=== PATIENT | female | born 2000 | race Two or more races ===

== ENCOUNTER 2018-05-31 20:59 | Emergency (ER) | payer SELFPAY ==
[~2018-05-31] VITALS: Ht 162.6 cm; Wt 54.0 kg
[2018-05-31] MEDS ORDERED: SODIUM CHLORIDE 0.9% 1,000 ML IV ONE ×2 (21:37→23:19)
[2018-05-31 22:51] LABS: BASOPHILS % 0.3 % (0.0-2.0); EOSINOPHILS % 0.1 % (0.0-5.0); HEMATOCRIT. 32.4 % (36.0-48.0); HEMOGLOBIN. 10.6 g/dL (12.0-16.0); LYMPHOCYTES % 8.3 % (20.0-50.0); MEAN CORPUSCULAR HEMOGLOBIN 26.6 pg (28.0-32.0); MEAN CORPUSCULAR VOLUME 81.7 fL (81.0-99.0); MEAN PLATELET VOLUME 9.6 fl (7.4-10.4); MONOCYTES % 3.9 % (2.0-8.0); NEUTROPHILS % 87.4 % (40.0-76.0); PLATELET 294 x1000/uL (130-400); RED BLOOD CELL COUNT 3.97 mill/uL (4.2-5.4); RED CELL DISTRIBUTION WIDTH 14.8 % (11.6-14.6)
[2018-05-31 23:00] LABS: CHLORIDE 106 mEq/L (98-107)
[2018-05-31 23:04] LABS: HCG SCREEN NEGATIVE
[2018-06-01 00:29] VITALS: BP 100/50
== END 2018-06-01 00:36 | disposition home or self-care (01) ==
LOC: ER 20:59
DX: T40.7X1A Poisoning by cannabis (derivatives), accidental (unintentional), initial encounter (principal); Y92.9 Unspecified place or not applicable
CPT/HCPCS: 36415; 80053; 84703; 85025; 99284; J7030